=== PATIENT | female | born 1995 | race Caucasian/White ===

== ENCOUNTER 2017-02-23 11:56 | Emergency (ER) | payer SELFPAY ==
--- NOTE | 2017-02-23 13:14 | ER Document Report ---
ED General - General Chief Complaint: Skin Problem Stated Complaint: POSSIBLE SPIDER BITE Time Seen by Provider: 02/23/17 13:08 Mode of Arrival: Ambulatory Information source: Patient Notes: Patient reports a rash on her left breast that is itchy. Patient does have cats and dogs. Patient states that she also has some small similar areas on her left arm and inner thigh. No fevers. Nothing makes her symptoms better or worse. There is no radiation of symptoms. They are constant. They are mild to moderate. TRAVEL OUTSIDE OF THE [place] IN LAST 30 DAYS: No - Related Data Allergies/Adverse Reactions: sumatriptan [From Imitrex] Allergy (Verified 02/23/17 12:00) Past Medical History - General Information source: Patient - Social History Smoking Status: Current Every Day Smoker Chew tobacco use (# tins/day): No Frequency of alcohol use: Occasional Drug Abuse: Marijuana Family History: Reviewed & Not Pertinent Patient has suicidal ideation: No Patient has homicidal ideation: No Renal/ Medical History: Denies: Hx Peritoneal Dialysis Review of Systems - Review of Systems Constitutional: denies: Chills, Fever Cardiovascular: denies: Chest pain, Palpitations Respiratory: denies: Cough, Short of breath Physical Exam - Vital signs Vitals: Temp Pulse Resp BP Pulse Ox 98.6 F 95 12 126/80 H 99 02/23/17 12:00 02/23/17 12:00 02/23/17 12:00 02/23/17 12:00 02/23/17 12:00 Interpretation: Hypertensive - General General appearance: Appears well, Alert In distress: None - Respiratory Respiratory status: No respiratory distress Chest status: Nontender Breath sounds: Normal Chest palpation: Normal - Cardiovascular Rhythm: Regular Heart sounds: Normal auscultation Murmur: No - Psychological Associated symptoms: Normal affect, Normal mood - Skin Skin Temperature: Warm Skin Moisture: Dry Skin Color: Other - Patient's skin is warm and dry. Left breast has a erythematous circular lesion with raised borders consistent with ringworm. Course - Vital Signs Vital signs: Temp Pulse Resp BP Pulse Ox 98.6 F 95 12 126/80 H 99 02/23/17 12:00 02/23/17 12:00 02/23/17 12:00 02/23/17 12:00 02/23/17 12:00 Discharge - Discharge Clinical Impression: Ringworm of body Condition: Stable Disposition: HOME, SELF-CARE Instructions: Ringworm (Tinea Corporis) ([facility]) Additional Instructions: Your blood pressure is mildly elevated. Please have this rechecked within 1 week by your doctor. Prescriptions: Butenafine HCl [Lotrimin Ultra 1% Cream] 1 applic TP BID #1 tube Forms: Elevated Blood Pressure Referrals: VINITA TAVAREZ MD [[facility]ED STAFF] - Follow up as needed
[2017-02-23 13:24] VITALS: BP 110/62
== END 2017-02-23 13:22 | disposition home or self-care (01) ==
LOC: ER 11:56
DX: B35.4 Tinea corporis (principal); F17.200 Nicotine dependence, unspecified, uncomplicated; Z88.6 Allergy status to analgesic agent
CPT/HCPCS: 99282